=== PATIENT | female | born 1980 | race Caucasian/White ===

== ENCOUNTER 2020-10-19 09:59 | Emergency (ER) | payer OTHER ==
[~2020-10-19] VITALS: Ht 152.4 cm; Wt 68.2 kg
[2020-10-19 10:20] VITALS: BP 131/80; Ht 152.4 cm; Wt 68.2 kg
[2020-10-19 11:20] LABS: BASOPHILS 0.3 % (0-2); EOSINOPHILS 0.6 % (0-7); HEMOGLOBIN 15.6 g/dL (12-16); IMMATURE GRANULOCYTES 0.2 % (0-5); LYMPHOCYTE ABS# 1.79 10x3/uL (1.18-3.74); LYMPHOCYTES 18.1 % (15-50); MCH 33.4 pg (26.0-34.0); MCHC 34.7 g/dL (31.0-37.0); MCV 96.4 fL (80.0-100.0); MEAN PLATELET VOLUME 12.8 fL (7.4-10.4); MONOCYTES 4.2 % (2-11); NEUTROPHIL ABS# 7.59 10x3/uL (1.56-6.13); NEUTROPHILS 76.6 % (40-80); PLATELET COUNT 202 10x3/uL (130-400); RBC 4.67 10x6/uL (4.00-5.40); RDW 13.1 % (11.5-14.5); WBC 9.9 10x3/uL (4.8-10.8)
[2020-10-19 11:31] LABS: CALC OSMOLALITY 277 mosm/kg (275-300); CALCIUM 8.8 mg/dL (8.5-10.1); CARBON DIOXIDE 21.8 mmol/L (21.0-32.0); CHLORIDE - SERUM 106 mmol/L (98-107); CREATININE - SERUM 0.6 mg/dL (0.6-1.3); GLUCOSE 91 mg/dL (74-106); POTASSIUM - SERUM 3.7 mmol/L (3.5-5.1); SODIUM 140 mmol/L (136-145); UREA NITROGEN 10 mg/dL (7-18); eGFR NON AFRICAN AMERICAN > 90 mL/min (90-120)
[2020-10-19 11:33] LABS: ALKALINE PHOSPHATASE 76 U/L (30-120); ALT (SGPT) 23 U/L (10-68); BILIRUBIN - TOTAL 0.44 mg/dL (0.2-1.3); LIPASE 76 U/L (73-393); PROTEIN - SERUM 7.4 g/dL (6.4-8.2)
[2020-10-19] MEDS ORDERED: PROTONIX40 MG PO (12:48)
[2020-10-19 12:55] LABS: BILIRUBIN NEGATIVE (NEGATIVE); KETONE NEGATIVE (NEGATIVE); NITRITE NEGATIVE (NEGATIVE); UROBILINOGEN NORMAL mg/dL (< 2)
[2020-10-19 12:56] LABS: BACTERIA FEW HPF (NONE SEEN); SQUAMOUS EPITHELIAL 0-5 HPF (0-4); WHITE CELLS - URINE 0-5 HPF (0-4)
[2020-10-19 12:57] LABS: HCG URINE NEGATIVE (NEGATIVE)
== END 2020-10-19 13:06 | disposition home or self-care (01) ==
LOC: D.ER 09:59
PROVIDERS: Emergency Medicine
DX: R10.13 Epigastric pain (principal); K29.70 Gastritis, unspecified, without bleeding